=== PATIENT | female | born 1960 | race Caucasian/White ===

== ENCOUNTER 2016-06-10 09:31 | Emergency (ER) | payer OTHER ==
[~2016-06-10] VITALS: Wt 81.6 kg
[~2016-06-10 09:31] MED LIST: ACULAR 3 ML3 M1 OP; AMARYL4 MG PO; AMOXICILLIN500 MG PO; ASPIRIN ADULT L81 M1 PO; AUGMENTIN 875875 MG PO; BIAXIN500 MG PO; CIPRO500 MG PO; CIPROFLOXACIN500 MG PO; CLARITIN10 MG PO; CORTISPORIN SUS10 ML OT; DIFLUCAN150 MG PO; DOXYCYCLINE MO100 MG PO; GENTAMICIN3 MG/ML OP; GLUCOPHAGE1000 MG PO; JENTADUETO 2.51 EAC2 PO; KENALOG0.1% TP; LIPITOR20 MG PO; MEDROL DOSEPAK4 MG PO; Motrin,Rufen800 MG PO; NAPROSYN500 MG PO; Oscal,Oyster S500 MG PO; PAROXETINE40 MG PO; PHENERGAN W/DM120 ML PO; PROZAC40 MG PO; TOBREX OPHTH S2.5 ML OPH; TRAD5TAB1 PO; TRILIPIX45 MG PO; VICODIN 5/500 505 MG PO; VISTARIL50 MG PO; VITAMIN D400 I1 PO; ZITHROMAX Z PA250 MG PO; ZOFRAN ODT4 MG SL
[2016-06-10 09:36] VITALS: BP 156/72
[2016-06-10] MEDS ORDERED: JARDIANCE10 MG PO (09:38)
[2016-06-10] MEDS ORDERED: LISINOPRIL10 M1 PO (09:39)
[2016-06-10] MEDS ORDERED: NEURONTIN300 MG PO (09:39)
[2016-06-10] MEDS ORDERED: FISH OIL500 M1 PO (09:39)
[2016-06-10 10:12] LABS: BASO # 0.1 10*3/uL (0.0-0.1); BASO % 0.7 % (0.0-1.0); EOS # 0.6 10*3/uL (0.0-0.4); EOS % 8.1 % (1.0-4.0); HEMATOCRIT 37.6 % (37.0-47.0); HEMOGLOBIN 12.1 g/dl (12.0-16.0); LYMPH % 28.6 % (27.0-41.0); MEAN CELL VOLUME 89.7 fl (81.0-99.0); MEAN CORPUSCULAR HGB 28.9 pg (27.0-31.0); MEAN CORPUSCULAR HGB CONC 32.2 g/dl (33.0-37.0); MEAN PLATELET VOLUME 10.1 fl (9.6-12.3); MONO # 0.5 10*3/uL (0.1-1.0); MONO % 7.3 % (3.0-9.0); NEUT # 3.7 10*3/uL (2.3-7.9); PLATELET COUNT AUTOMATED 254 10*3/uL (130-400); RED BLOOD COUNT 4.19 10*6/uL (4.10-5.10); RED CELL DISTRI WIDTH 13.7 % (0-14.5); WHITE BLOOD COUNT 6.8 10*3/uL (4.8-10.8)
[2016-06-10 10:28] LABS: ALBUMIN 3.6 gm/dl (3.1-4.5); ALKALINE PHOSPHATASE 106 U/L (45-117); BILIRUBIN, TOTAL 0.5 mg/dl (0.2-1.0); BUN 10 mg/dl (7-24); CARBON DIOXIDE 25 mmol/L (21-32); EST GLOM FILT AFRICAN AMERICAN > 60 ml/min; GLUCOSE 137 mg/dL (65-99); SGOT/AST 14 IU/L (3-35); SGPT/ALT 25 U/L (12-78); TOTAL PROTEIN 7.4 gm/dL (6.4-8.2)
[2016-06-10 10:38] LABS: CHLORIDE 105 mmol/L (98-107); SODIUM 142 mmol/L (136-145)
[2016-06-10] MEDS ORDERED: CEPHALEXIN500 M1 PO (10:49)
== END 2016-06-10 10:52 | disposition home or self-care (01) ==
LOC: ED 09:31
PROVIDERS: Registered Nurse
DX: N61.0 Mastitis without abscess (principal); Z79.82 Long term (current) use of aspirin; Z79.899 Other long term (current) drug therapy

== ENCOUNTER 2016-11-30 13:32 | Emergency (ER) | payer OTHER ==
[~2016-11-30] VITALS: Ht 157.4 cm; Wt 72.6 kg
[~2016-11-30 13:32] MED LIST changes: +CEPHALEXIN500 M1 PO; +FISH OIL500 M1 PO; +JARDIANCE10 MG PO; +LISINOPRIL10 M1 PO; +NEURONTIN300 MG PO
[2016-11-30] MEDS ORDERED: NEURONTIN400 MG PO (13:37)
[2016-11-30] MEDS ORDERED: CYMBALTA60 MG PO (13:39)
[2016-11-30] MEDS ORDERED: LANTUS100 U/ML SQ (13:41)
[2016-11-30 13:52] VITALS: BP 140/71
[2016-11-30 13:56] LABS: BASO % 0.6 % (0.0-1.0); EOS # 0.3 10*3/uL (0.0-0.4); EOS % 4.9 % (1.0-4.0); HEMATOCRIT 35.6 % (37.0-47.0); HEMOGLOBIN 11.5 g/dl (12.0-16.0); LYMPH % 29.7 % (27.0-41.0); MEAN CELL VOLUME 88.1 fl (81.0-99.0); MEAN CORPUSCULAR HGB 28.5 pg (27.0-31.0); MEAN CORPUSCULAR HGB CONC 32.3 g/dl (33.0-37.0); MEAN PLATELET VOLUME 10.2 fl (9.6-12.3); MONO # 0.5 10*3/uL (0.1-1.0); MONO % 7.5 % (3.0-9.0); NEUT # 3.9 10*3/uL (2.3-7.9); NEUT % 57.2 % (47.0-73.0); PLATELET COUNT AUTOMATED 262 10*3/uL (130-400); RED BLOOD COUNT 4.04 10*6/uL (4.10-5.10); RED CELL DISTRI WIDTH 13.8 % (0-14.5); WHITE BLOOD COUNT 6.8 10*3/uL (4.8-10.8)
[2016-11-30 14:13] LABS: ALBUMIN 3.6 gm/dl (3.1-4.5); ALKALINE PHOSPHATASE 104 U/L (45-117); BILIRUBIN, TOTAL 0.5 mg/dl (0.2-1.0); BUN 18 mg/dl (7-24); CARBON DIOXIDE 23 mmol/L (21-32); CHLORIDE 101 mmol/L (98-107); EST GLOM FILT AFRICAN AMERICAN > 60 ml/min; GLUCOSE 348 mg/dL (65-99); MAGNESIUM 1.8 mg/dL (1.5-2.1); POTASSIUM 3.6 mmol/L (3.5-5.1); SGOT/AST 11 IU/L (3-35); SGPT/ALT 23 U/L (12-78); SODIUM 137 mmol/L (136-145); TOTAL PROTEIN 7.3 gm/dL (6.4-8.2)
[2016-11-30 14:17] LABS: TROPONIN I < 0.015 ng/ml (<0.045)
[2016-11-30] MEDS ORDERED: METFORMIN HCL500 MG PO (14:54)
[2016-11-30] MEDS ORDERED: TRAD5TAB1 PO (14:54)
== END 2016-11-30 16:13 | disposition home or self-care (01) ==
LOC: ED 13:32
PROVIDERS: Nurse Practitioner Family
DX: R73.9 Hyperglycemia, unspecified (principal); R03.0 Elevated blood-pressure reading, without diagnosis of hypertension; G43.909 Migraine, unspecified, not intractable, without status migrainosus; Z79.82 Long term (current) use of aspirin; Z79.899 Other long term (current) drug therapy

== ENCOUNTER 2017-02-05 14:18 | Emergency (ER) | payer OTHER ==
[~2017-02-05] VITALS: Wt 81.6 kg
[~2017-02-05 14:18] MED LIST changes: +CYMBALTA60 MG PO; +LANTUS100 U/ML SQ; +METFORMIN HCL500 MG PO; +NEURONTIN400 MG PO
[2017-02-05 14:33] VITALS: BP 112/72
[2017-02-05] MEDS ORDERED: BACTRIM 400-801 EACH PO (14:52)
== END 2017-02-05 15:09 | disposition home or self-care (01) ==
LOC: ED 14:18
DX: L02.11 Cutaneous abscess of neck (principal); Z79.899 Other long term (current) drug therapy; Z79.82 Long term (current) use of aspirin

== ENCOUNTER → 2017-02-07 | Outpatient (CLI) | payer OTHER ==
[~2017-02-07] MED LIST changes: +BACTRIM 400-801 EACH PO
== END | disposition home or self-care (01) ==
LOC: D 09:44
DX: E11.65 Type 2 diabetes mellitus with hyperglycemia (principal)

== ENCOUNTER 2017-05-31 09:27 | Emergency (ER) | payer OTHER ==
[~2017-05-31] VITALS: Ht 165.1 cm; Wt 80.7 kg
[2017-05-31 09:37] VITALS: BP 111/59
[2017-05-31] MEDS ORDERED: ROBITUSSIN DM 105 ML PO (09:52)
[2017-05-31] MEDS ORDERED: FLONASE ALLERG9.9 ML NAS (09:52)
[2017-05-31] MEDS ORDERED: PREDNISONE10 MG PO (09:52)
[2017-05-31] MEDS ORDERED: CLARITIN10 MG PO (09:52)
== END 2017-05-31 11:21 | disposition home or self-care (01) ==
LOC: ED 09:27
DX: J20.9 Acute bronchitis, unspecified (principal); G43.909 Migraine, unspecified, not intractable, without status migrainosus; R73.9 Hyperglycemia, unspecified; F10.10 Alcohol abuse, uncomplicated; Z79.82 Long term (current) use of aspirin; Z79.4 Long term (current) use of insulin; Z79.899 Other long term (current) drug therapy; Z90.49 Acquired absence of other specified parts of digestive tract; Z90.710 Acquired absence of both cervix and uterus

== ENCOUNTER 2017-09-15 10:58 | Emergency (ER) | payer OTHER ==
[~2017-09-15] VITALS: Ht 172.7 cm; Wt 95.3 kg
[~2017-09-15 10:58] MED LIST changes: +FLONASE ALLERG9.9 ML NAS; +PREDNISONE10 MG PO; +ROBITUSSIN DM 105 ML PO
[2017-09-15 11:14] VITALS: BP 103/63
[2017-09-15] MEDS ORDERED: IBU800 MG PO (11:26)
[2017-09-15] MEDS ORDERED: CLARITIN-D 24 H1 TAB PO (11:26)
== END 2017-09-15 12:06 | disposition home or self-care (01) ==
LOC: ED 10:58
DX: M25.532 Pain in left wrist (principal); J30.2 Other seasonal allergic rhinitis; G43.909 Migraine, unspecified, not intractable, without status migrainosus; Z90.710 Acquired absence of both cervix and uterus; Z98.890 Other specified postprocedural states; Z90.49 Acquired absence of other specified parts of digestive tract; Z79.4 Long term (current) use of insulin; Z79.82 Long term (current) use of aspirin; Z79.899 Other long term (current) drug therapy

== ENCOUNTER 2017-12-06 18:50 | Emergency (ER) | payer OTHER ==
[~2017-12-06] VITALS: Ht 165.1 cm; Wt 81.6 kg
[2017-12-06 18:50] VITALS: BP 132/61
[~2017-12-06 18:50] MED LIST changes: +CLARITIN-D 24 H1 TAB PO; +IBU800 MG PO; +LANTUS SOL100 UNIT/1 SC; -LANTUS100 U/ML SQ
[2017-12-06] MEDS ORDERED: CHLORZOXAZONE500 M2 PO (19:42)
== END 2017-12-06 19:51 | disposition home or self-care (01) ==
LOC: ED 18:50
DX: M54.42 Lumbago with sciatica, left side (principal); M54.41 Lumbago with sciatica, right side; R03.0 Elevated blood-pressure reading, without diagnosis of hypertension; Z79.899 Other long term (current) drug therapy; Z79.82 Long term (current) use of aspirin

== ENCOUNTER → 2017-12-26 | Outpatient (CLI) | payer OTHER ==
[~2017-12-26] MED LIST changes: +ADVIL200 MG PO; +CETIRIZINE10 MG PO; +CHLORZOXAZONE500 M2 PO; +LIPITOR40 MG PO; +METHIMAZOLE5 M1 PO; +NOVOLOG FL100 UNIT/1 SQ; +NOVOLOG10 ML SQ; +TOPCARE OMEPRAZ20 MG PO; +VITAMIN D5000 UNIT PO
--- NOTE | ~2017-12-26 | EKG ---
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
== END | disposition home or self-care (01) ==
LOC: MRI 09:38
DX: M54.16 Radiculopathy, lumbar region (principal)

== ENCOUNTER 2018-01-05 13:07 | Inpatient (IN) | payer OTHER ==
[2018-01-05] VITALS (7 sets, daily range): BP systolic 101–113; BP diastolic 58–63
[~2018-01-05] VITALS: Ht 165.1 cm; Wt 80.5 kg
--- NOTE | ~2018-01-05 | ST ---
[place], [place] EXERCISE STRESS TEST REPORT NAME: DYAN GUERRERO UNIT #: [id number] ROOM: 517 DOCTOR: CORRINA CALLOWAY MD BIRTHDATE: [birth year] DOS: 01/07/2018 PROCEDURE: Lexiscan portion of the Lexiscan Cardiolite. Baseline cardiogram, sinus rhythm to sinus tachycardia with nonspecific ST-T changes. A 0.4 mg Lexiscan, duration of 10 seconds. With Lexiscan, no new EKG changes. The patient had no chest discomfort. Blood pressure and heart rate normal. Nuclear images will be reported separately. CORRINA CALLOWAY MD CM:STRESS:EXERCISE STRESS TEST REPORT [id number] CORRINA CALLOWAY MD
--- NOTE | ~2018-01-05 | CON ---
[place], [place] REPORT OF CONSULTATION [id number] UNIT #: [id number] ROOM: 517 DOCTOR: ESTEFANY WILSON MD BIRTHDATE: [birth year] DOS: 01/06/2018 HISTORY OF PRESENT ILLNESS: This is a 57-year-old -[place] woman with a history of longstanding type 2 diabetes mellitus, hyperlipidemia, essential hypertension, migraines, who has had hysterectomy and cholecystectomy. She has never had a heart attack, heart failure, or stroke. No kidney problems or cancer. She has never had COPD. She has never smoked cigarettes. Her father was in his 60s when he was diagnosed with coronary artery disease and I believe mother too. ____. 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 She felt tired and weak. She had no palpitations, but did sweat quite a bit, which was unusual too. She has not had any PND, orthopnea, or swelling of the lower extremities. HOME MEDICATIONS: Include aspirin, atorvastatin, lisinopril, omeprazole, linagliptin/metformin, insulin aspart and glargine, ibuprofen, Jardiance, Cymbalta, and cetirizine. PHYSICAL EXAMINATION: GENERAL: The patient is very pleasant, alert. She is very comfortable. She is not in any distress. There is no anemia, thyromegaly. VITAL SIGNS: Pulse is regular at 80 beats per minute, blood pressure 110/58. NECK: Normal JVP. No carotid bruit is present. HEART: There is no cardiomegaly. Cardiac auscultation reveals normal heart sounds and no murmurs. Good pedal pulses and no edema in the lower extremities. RESPIRATORY: She is not tachypneic. Percussion note is normal. Auscultation reveals good breath sounds bilaterally. DIAGNOSTIC STUDIES: An ECG showed normal sinus rhythm and a normal pattern and troponin I levels were also normal. IMPRESSION: This patient has exertional dyspnea with no underlying lung disease. She also had chest heaviness a couple of times with exertion. This is highly suggestive of underlying coronary artery disease in this patient with many risk factors for atherosclerosis. His stress Cardiolite study has been scheduled, which is most appropriate for this patient. RECOMMENDATIONS: I would perform an exercise stress Cardiolite. An echocardiogram has already been done, which Dr. Pollock will review. I thank you on behalf of Dr. Pollock for this consult. [place], [place] REPORT OF CONSULTATION NAME: [facility]AN [facility]ERRERO [facility]: [id number] UNIT #: [id number] ROOM: 517 DOCTOR: ESTEFANY WILSON MD BIRTHDATE: [birth year] ESTEFANY WILSON MD CM:CONSTR:REPORT OF CONSULTATION 1653 01/07/18 0106 interface CORRINA POLLOCK MD
--- NOTE | ~2018-01-05 | EKG ---
[place], [place] ELECTROCARDIOGRAM REPORT NAME: DYAN GUERRERO UNIT #: [id number] ROOM: 517 DOCTOR: BYRON DRAFT REPORT BIRTHDATE: [birth year] [facility] Test Date: 2018-01-05 Test Time: 19:26:08 Pat Name: DYAN GUERRERO Department: [facility] Room: 517 Gender: F Butcher Scullion: Christoph Zavala : 1960 Requested By: GABRIEL VALDEZ Order Number: [id number] Reading MD: Christoph Revees MD Measurements Intervals [place] Rate: 89 P: 33 DC: 165 QRS: -12 QRSD: 85 T: 12 QT: 367 QTc: 447 Interpretive Statements Sinus rhythm Low voltage, precordial leads Borderline T abnormalities, anterior leads Compared to ECG 01/05/2018 16:34:57 T-wave abnormality now present Electronically Signed On 01-06-2018 7:44:21 PDT by Christoph Reeves MD CM:EKGRPT:ELECTROCARDIOGRAM REPORT [id number] GABRIEL MATTHEWS DRAFT REPORT GABRIEL VALDEZ MD
--- NOTE | ~2018-01-05 | EKG ---
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 Electronically Signed On 01-05-2018 15:55:45 PDT by Christoph Reeves MD CM:EKGRPT:ELECTROCARDIOGRAM REPORT [id number] GABRIEL MATTHEWS DRAFT REPORT GABRIEL VALDEZ MD
[~2018-01-05 13:07] MED LIST changes: -ADVIL200 MG PO; -CETIRIZINE10 MG PO; -LIPITOR40 MG PO; -METHIMAZOLE5 M1 PO; -NOVOLOG FL100 UNIT/1 SQ; -NOVOLOG10 ML SQ; -TOPCARE OMEPRAZ20 MG PO; -VITAMIN D5000 UNIT PO
[2018-01-05 13:38] LABS: BASO % 0.2 % (0.0-1.0); EOS # 0.6 10*3/uL (0.0-0.4); EOS % 6.6 % (1.0-4.0); HEMATOCRIT 34.3 % (37.0-47.0); LYMPH % 23.1 % (27.0-41.0); MEAN CELL VOLUME 84.3 fl (81.0-99.0); MEAN CORPUSCULAR HGB CONC 32.1 g/dl (33.0-37.0); MEAN PLATELET VOLUME 9.7 fl (9.6-12.3); MONO # 0.7 10*3/uL (0.1-1.0); MONO % 8.3 % (3.0-9.0); NEUT # 5.4 10*3/uL (2.3-7.9); NEUT % 61.3 % (47.0-73.0); PLATELET COUNT AUTOMATED 362 10*3/uL (130-400); RED BLOOD COUNT 4.07 10*6/uL (4.10-5.10); RED CELL DISTRI WIDTH 13.6 % (0-14.5); WHITE BLOOD COUNT 8.8 10*3/uL (4.8-10.8)
[2018-01-05 13:55] LABS: ALBUMIN 3.3 gm/dl (3.1-4.5); BUN 22 mg/dl (7-24); CHLORIDE 106 mmol/L (98-107); CREATININE 1.19 mg/dL (0.55-1.02); POTASSIUM 4.5 mmol/L (3.5-5.1); SGOT/AST 11 IU/L (3-35); SGPT/ALT 23 U/L (12-78); SODIUM 139 mmol/L (136-145); TOTAL PROTEIN 7.8 gm/dL (6.4-8.2)
[2018-01-05 13:57] LABS: ALKALINE PHOSPHATASE 155 U/L (45-117)
[2018-01-05 14:08] LABS: ACT PARTIAL THROMBO TIME 22.7 SECONDS (20.8-31.5)
[2018-01-05 14:12] LABS: TROPONIN I < 0.015 ng/ml (<0.045)
[2018-01-05] MEDS ORDERED: TOPCARE OMEPRAZ20 MG PO (16:53)
[2018-01-05] MEDS ORDERED: CETIRIZINE10 MG PO (16:53)
[2018-01-05] MEDS ORDERED: LIPITOR40 MG PO (16:54)
[2018-01-05] MEDS ORDERED: NOVOLOG10 ML SQ (16:55)
[2018-01-05] MEDS ORDERED: VITAMIN D5000 UNIT PO (16:57)
[2018-01-05] MEDS ORDERED: NOVOLOG FL100 UNIT/1 SQ (17:00)
[2018-01-05] MEDS ORDERED: ADVIL200 MG PO (18:02)
[2018-01-06 00:02] VITALS: BP 95/41
[2018-01-06 06:46] LABS: BASO % 0.3 % (0.0-1.0); EOS # 0.5 10*3/uL (0.0-0.4); EOS % 6.4 % (1.0-4.0); HEMATOCRIT 30.9 % (37.0-47.0); HEMOGLOBIN 9.6 g/dl (12.0-16.0); LYMPH # 1.4 10*3/uL (1.3-4.4); LYMPH % 20.1 % (27.0-41.0); MEAN CELL VOLUME 86.6 fl (81.0-99.0); MEAN CORPUSCULAR HGB 26.9 pg (27.0-31.0); MEAN CORPUSCULAR HGB CONC 31.1 g/dl (33.0-37.0); MEAN PLATELET VOLUME 9.3 fl (9.6-12.3); MONO # 0.6 10*3/uL (0.1-1.0); MONO % 9.1 % (3.0-9.0); NEUT # 4.5 10*3/uL (2.3-7.9); NEUT % 63.7 % (47.0-73.0); PLATELET COUNT AUTOMATED 281 10*3/uL (130-400); RED BLOOD COUNT 3.57 10*6/uL (4.10-5.10); RED CELL DISTRI WIDTH 13.8 % (0-14.5); WHITE BLOOD COUNT 7.1 10*3/uL (4.8-10.8)
[2018-01-06 06:54] LABS: INTERNATIONAL NORM RATIO 0.9 (2.0-3.5)
[2018-01-06 07:08] LABS: ALBUMIN 2.7 gm/dl (3.1-4.5); ALKALINE PHOSPHATASE 128 U/L (45-117); BUN 19 mg/dl (7-24); CHLORIDE 108 mmol/L (98-107); CHOLESTEROL 77 mg/dL (<200); CREATININE 1.02 mg/dL (0.55-1.02); HDL CHOLESTEROL 21 mg/dl (40-60); LDL CHOLESTEROL 9 mg/dL (9-159); POTASSIUM 4.8 mmol/L (3.5-5.1); SGOT/AST 9 IU/L (3-35); SGPT/ALT 19 U/L (12-78); SODIUM 141 mmol/L (136-145); TOTAL PROTEIN 6.5 gm/dL (6.4-8.2); TRIGLYCERIDES 236 mg/dl (<150); VLDL CHOLESTEROL 47 mg/dL (6-40)
[2018-01-06 07:53] LABS: THYROID STIM HORMONE (HS) < 0.005 uIU/ml (0.358-4.75)
[2018-01-06 08:00] VITALS: BP 118/66
[2018-01-06 08:40] LABS: VITAMIN D, 25-HYDROXY 40.5 ng/mL (30-100)
[2018-01-06 12:00] VITALS: BP 100/57
[2018-01-06 16:00] VITALS: BP 110/58
[2018-01-06 20:00] VITALS: BP 123/62
[2018-01-07] VITALS: BP 104/47
[2018-01-07 08:00] VITALS: BP 112/56
[2018-01-07] MEDS ORDERED: METHIMAZOLE5 M1 PO (10:08)
== END 2018-01-07 10:42 | disposition home or self-care (01) | DRG 682 ==
LOC: ED 13:07 → EDHOLD 16:01 → 5E 16:01
PROVIDERS: Emergency Medicine; Student in an Organized Health Care Education/Training Program
PROC: 4A02XM4 Measurement of Cardiac Total Activity, External Approach (ICD-10-PCS; principal; 2018-01-07)
PROC: 3E073KZ Introduction of Other Diagnostic Substance into Coronary Artery, Percutaneous Approach (ICD-10-PCS; 2018-01-07)
DX: N17.0 Acute kidney failure with tubular necrosis (principal); E43 Unspecified severe protein-calorie malnutrition; E87.8 Other disorders of electrolyte and fluid balance, not elsewhere classified; I20.8 Other forms of angina pectoris; D64.9 Anemia, unspecified; E78.5 Hyperlipidemia, unspecified; N28.9 Disorder of kidney and ureter, unspecified; I10 Essential (primary) hypertension; R06.09 Other forms of dyspnea; E11.65 Type 2 diabetes mellitus with hyperglycemia; G43.909 Migraine, unspecified, not intractable, without status migrainosus; Z79.4 Long term (current) use of insulin; Z90.710 Acquired absence of both cervix and uterus; Z90.49 Acquired absence of other specified parts of digestive tract; Z82.49 Family history of ischemic heart disease and other diseases of the circulatory system; Z79.82 Long term (current) use of aspirin; Z79.899 Other long term (current) drug therapy; Z68.29 Body mass index [BMI] 29.0-29.9, adult

== ENCOUNTER 2018-05-10 12:46 | Inpatient (IN) | payer MEDICAID ==
[2018-05-10] VITALS (12 sets, daily range): BP systolic 130–158; BP diastolic 63–83
[~2018-05-10] VITALS: Ht 165.1 cm; Wt 79.6 kg
--- NOTE | ~2018-05-10 | EKG ---
[place], [place] ELECTROCARDIOGRAM REPORT NAME: DYAN GUERRERO UNIT #: [id number] ROOM: 528 DOCTOR: BYRON DRAFT REPORT BIRTHDATE: [birth year] [facility] Test Date: 2018-05-10 Test Time: 14:29:18 Pat Name: DYAN GUERRERO Department: Room: 528 Gender: F Insurance Account Representative: [place] : 1960 Requested By: GABRIEL VALDEZ Order Number: [id number] Reading MD: Carrie Chris MD Measurements Intervals [place] Rate: 100 P: 20 MD: 158 QRS: -2 QRSD: 81 T: 17 QT: 395 QTc: 510 Interpretive Statements Sinus tachycardia Low voltage, precordial leads Nonspecific T abnormalities, anterior leads Borderline prolonged QT interval Compared to ECG 01/05/2018 19:26:08 Sinus rhythm no longer present T-wave abnormality still present Electronically Signed On 05-16-2018 8:44:39 PST by Carrie Chris MD CM:EKGRPT:ELECTROCARDIOGRAM REPORT [id number] GABRIEL MATTHEWS DRAFT REPORT GABRIEL VALDEZ MD
--- NOTE | ~2018-05-10 | CON ---
[place], [place] REPORT OF CONSULTATION [id number] UNIT #: [id number] ROOM: 528 DOCTOR: KYM FIGUEROA MD BIRTHDATE: [birth year] DOS: 05/11/2018 NEPHROLOGY CONSULTATION REASON FOR CONSULTATION: Management of dialysis/patient known to you. HISTORY OF PRESENT ILLNESS: The patient is a 57-year-old female with past medical history of end-stage renal disease. Apparently, she has renal cell carcinoma with nephrectomies. Details of this are not clear to me. She is rather new to dialysis. She is being dialyzed at [facility]. She does have a tunneled dialysis catheter in place, also has an AV fistula. The patient is on a Saturday, , Saturday schedule. She had standard labs drawn, which showed her hemoglobin was dropping was noted to be 7. I was called with this on Saturday morning and asked to repeat the labs, subsequently it was down to 6.7. I did recommend an ER admission after dialysis for a unit of blood. I was called by the Emergency Room and they stated the repeat hemoglobin was over 7. The patient did give symptoms of fatigue and a poor appetite. It was decided to transfuse and she was supposed to go home; however, she was admitted. Apparently, there were concerns about a chest x-ray showing pleural effusions. The patient tells me she does feel better after transfusion. She was telling me that they were awaiting my recommendations for discharge, although it was not even aware she was admitted or was going to be admitted. Her hemoglobin did respond to the transfusion. The patient has had no overt signs of bleeding. She does have a history of known dark stools due to iron supplementation. She denied nausea, vomiting, shortness of breath or chest pain. ALLERGIES: Listed to TAPE. MEDICATIONS: Reviewed in the chart. PAST MEDICAL HISTORY: 1. Renal cell carcinoma with apparent history of bilateral nephrectomy, details unclear. 2. End-stage renal disease, on dialysis. 3. Tunneled dialysis catheter placement. 4. AV fistula creation. 5. Anxiety. 6. Coronary artery disease. 7. Diabetes. 8. Gastroesophageal reflux disease. 9. Hyperlipidemia. 10. Hypothyroidism. 11. Vitamin D deficiency. 12. Breast surgery. 13. Cholecystectomy. 14. Hysterectomy. FAMILY HISTORY: Negative for chronic kidney disease, otherwise noncontributory. SOCIAL HISTORY: No tobacco, alcohol or illicit drugs. [place], [place] REPORT OF CONSULTATION NAME: DYAN GUERRERO UNIT #: [id number] ROOM: 528 DOCTOR: KYM FIGUEROA MD BIRTHDATE: [birth year] REVIEW OF SYSTEMS: As per HPI, otherwise, a 10-point review of systems was reviewed and was negative. PHYSICAL EXAMINATION: VITAL SIGNS: Temperature 98.2, pulse 93, respiratory rate 20, blood pressure 147/78. GENERAL: She is awake, alert, comfortable, in no acute distress. HEENT: Shows no JVD. Sclerae are anicteric. Mucous membranes are moist. Pharynx is clear. NECK: Supple. Trachea is midline. There is no neck lymphadenopathy or thyromegaly. LUNGS: Have diminished breath sounds at the bases, otherwise clear to auscultation. No crackles, wheezing or rales. There is no tactile fremitus. She is not using accessory muscles of respiration. HEART: S1, S2. No rub, thrill or gallop. ABDOMEN: Soft, nontender. There is no organomegaly or rigidity, rebound or guarding. There is no CVA tenderness. EXTREMITIES: Had no edema. There is no lower extremity lymphadenopathy. Distal pulses are 2+. SKIN: Showed overt rash. There was no petechia or purpura. Skin temperature is warm. NEUROLOGIC: She is awake, alert and following commands. Cranial nerves were intact. LABORATORY DATA: Hemoglobin 8.1, white count of 7.7, platelets of 147, BUN 19, creatinine 5.6, glucose 120. Sodium 135, potassium 4.1, CO2 of 27, calcium 8.3, phosphorus 2.8, magnesium 1.9. IMPRESSION: 1. End-stage renal disease, on hemodialysis Saturday, and Saturday, currently through a tunneled dialysis catheter. 2. Anemia with question of acute blood loss versus anemia of chronic disease. 3. Pleural effusions, likely due to chronic volume overload. 4. Renal cell carcinoma. 5. Anxiety. 6. Hypertension. PLAN: 1. Continue dialysis as per her normal schedule. 2. Continue home medications. 3. Ongoing supportive care. 4. The patient does have pleural effusions that will likely be needed to be re-addressed following ultrafiltration over the next few weeks. She does not require admission in the hospital and can be discharged from a renal standpoint. Thank you for this consultation. We will follow. [place], [place] REPORT OF CONSULTATION NAME: DYAN GUERRERO UNIT #: [id number] ROOM: 528 DOCTOR: KYM FIGUEROA MD BIRTHDATE: [birth year] KYM FIGUEROA MD CM:CONSTR:REPORT OF CONSULTATION 02 05/11/182124 interface
[~2018-05-10 12:46] MED LIST changes: +ADVIL200 MG PO; +CETIRIZINE10 MG PO; +LIPITOR40 MG PO; +METHIMAZOLE5 M1 PO; +NOVOLOG FL100 UNIT/1 SQ; +NOVOLOG10 ML SQ; +TOPCARE OMEPRAZ20 MG PO; +VITAMIN D5000 UNIT PO
[2018-05-10 13:27] LABS: BASO % 0.5 % (0.0-1.0); EOS # 0.6 10*3/uL (0.0-0.4); EOS % 7.6 % (1.0-4.0); HEMATOCRIT 21.1 % (37.0-47.0); HEMOGLOBIN 7.1 g/dl (12.0-16.0); LYMPH # 1.3 10*3/uL (1.3-4.4); LYMPH % 17.3 % (27.0-41.0); MEAN CELL VOLUME 89.4 fl (81.0-99.0); MEAN CORPUSCULAR HGB 30.1 pg (27.0-31.0); MEAN CORPUSCULAR HGB CONC 33.6 g/dl (33.0-37.0); MEAN PLATELET VOLUME 9.2 fl (9.6-12.3); MONO # 0.5 10*3/uL (0.1-1.0); MONO % 6.1 % (3.0-9.0); NEUT # 5.2 10*3/uL (2.3-7.9); PLATELET COUNT AUTOMATED 106 10*3/uL (130-400); RED BLOOD COUNT 2.36 10*6/uL (4.10-5.10); RED CELL DISTRI WIDTH 13.2 % (0-14.5); WHITE BLOOD COUNT 7.7 10*3/uL (4.8-10.8)
[2018-05-10 13:37] LABS: ACT PARTIAL THROMBO TIME 30.5 SECONDS (20.8-31.5)
[2018-05-10 13:43] LABS: ALBUMIN 2.4 gm/dl (3.1-4.5); CREATININE 3.96 mg/dL (0.55-1.02); POTASSIUM 3.7 mmol/L (3.5-5.1); TOTAL PROTEIN 6.6 gm/dL (6.4-8.2)
[2018-05-10] MEDS ORDERED: TAPAZOLE5 MG PO (16:02)
[2018-05-10] MEDS ORDERED: NOVOLOG100 UNIT/1 SQ (16:09)
[2018-05-10] MEDS ORDERED: SENOKOT-S TABL1 EACH PO (16:11)
[2018-05-10] MEDS ORDERED: TRAD5TAB1 PO (16:11)
[2018-05-10] MEDS ORDERED: DIAZEPAM2 MG PO (16:13)
[2018-05-10] MEDS ORDERED: AURYXIA210 MG PO (16:14)
[2018-05-10] MEDS ORDERED: HYDROXYZINE PAM50 MG PO (17:09)
[2018-05-10 22:20] LABS: BASO % 0.5 % (0.0-1.0); EOS # 0.8 10*3/uL (0.0-0.4); EOS % 10.4 % (1.0-4.0); HEMATOCRIT 22.5 % (37.0-47.0); HEMOGLOBIN 7.5 g/dl (12.0-16.0); LYMPH # 1.7 10*3/uL (1.3-4.4); LYMPH % 22.5 % (27.0-41.0); MEAN CELL VOLUME 89.6 fl (81.0-99.0); MEAN CORPUSCULAR HGB 29.9 pg (27.0-31.0); MEAN CORPUSCULAR HGB CONC 33.3 g/dl (33.0-37.0); MEAN PLATELET VOLUME 9.9 fl (9.6-12.3); MONO # 0.6 10*3/uL (0.1-1.0); MONO % 8.4 % (3.0-9.0); NEUT # 4.2 10*3/uL (2.3-7.9); NEUT % 57.7 % (47.0-73.0); PLATELET COUNT AUTOMATED 126 10*3/uL (130-400); RED BLOOD COUNT 2.51 10*6/uL (4.10-5.10); RED CELL DISTRI WIDTH 13.7 % (0-14.5); WHITE BLOOD COUNT 7.3 10*3/uL (4.8-10.8)
[2018-05-11] VITALS: BP 131/60
[2018-05-11 06:38] LABS: BASO % 0.5 % (0.0-1.0); EOS # 0.8 10*3/uL (0.0-0.4); EOS % 9.8 % (1.0-4.0); HEMATOCRIT 24.5 % (37.0-47.0); HEMOGLOBIN 8.1 g/dl (12.0-16.0); LYMPH # 1.8 10*3/uL (1.3-4.4); LYMPH % 22.6 % (27.0-41.0); MEAN CELL VOLUME 89.7 fl (81.0-99.0); MEAN CORPUSCULAR HGB 29.7 pg (27.0-31.0); MEAN CORPUSCULAR HGB CONC 33.1 g/dl (33.0-37.0); MEAN PLATELET VOLUME 9.9 fl (9.6-12.3); MONO # 0.7 10*3/uL (0.1-1.0); MONO % 8.5 % (3.0-9.0); NEUT # 4.5 10*3/uL (2.3-7.9); NEUT % 58.3 % (47.0-73.0); PLATELET COUNT AUTOMATED 147 10*3/uL (130-400); RED BLOOD COUNT 2.73 10*6/uL (4.10-5.10); WHITE BLOOD COUNT 7.7 10*3/uL (4.8-10.8)
[2018-05-11 07:22] LABS: POTASSIUM 4.1 mmol/L (3.5-5.1)
[2018-05-11 07:40] LABS: CREATININE 5.6 mg/dL (0.55-1.02); FREE T4 0.72 ng/dl (0.76-1.46); PHOSPHOROUS 2.8 mg/dL (2.5-4.9); THYROID STIM HORMONE (HS) 58.7 uIU/ml (0.358-4.75)
[2018-05-11 08:00] VITALS: BP 162/60
[2018-05-11 09:32] LABS: VITAMIN D, 25-HYDROXY 45.4 ng/mL (30-100)
[2018-05-11 12:00] VITALS: BP 165/81
[2018-05-11 16:00] VITALS: BP 147/78
[2018-05-11 20:00] VITALS: BP 150/78
== END 2018-05-11 19:35 | disposition home or self-care (01) | DRG 682 ==
LOC: ED 12:46 → EDHOLD 14:17 → 5E 14:33
PROVIDERS: Emergency Medicine; Internal Medicine
PROC: 30233N1 Transfusion of Nonautologous Red Blood Cells into Peripheral Vein, Percutaneous Approach (ICD-10-PCS; principal; 2018-05-10)
DX: I12.0 Hypertensive chronic kidney disease with stage 5 chronic kidney disease or end stage renal disease (principal); N18.6 End stage renal disease; E43 Unspecified severe protein-calorie malnutrition; J90 Pleural effusion, not elsewhere classified; E87.1 Hypo-osmolality and hyponatremia; C64.9 Malignant neoplasm of unspecified kidney, except renal pelvis; D63.1 Anemia in chronic kidney disease; R00.0 Tachycardia, unspecified; D69.6 Thrombocytopenia, unspecified; E87.8 Other disorders of electrolyte and fluid balance, not elsewhere classified; E78.5 Hyperlipidemia, unspecified; I25.10 Atherosclerotic heart disease of native coronary artery without angina pectoris; E03.9 Hypothyroidism, unspecified; K21.9 Gastro-esophageal reflux disease without esophagitis; R34 Anuria and oliguria; K59.00 Constipation, unspecified; E66.3 Overweight; E11.22 Type 2 diabetes mellitus with diabetic chronic kidney disease; E55.9 Vitamin D deficiency, unspecified; R42 Dizziness and giddiness; G43.909 Migraine, unspecified, not intractable, without status migrainosus; F41.9 Anxiety disorder, unspecified; E11.65 Type 2 diabetes mellitus with hyperglycemia; Z79.4 Long term (current) use of insulin; Z91.09 Other allergy status, other than to drugs and biological substances; Z99.2 Dependence on renal dialysis; Z90.5 Acquired absence of kidney; Z91.048 Other nonmedicinal substance allergy status; Z90.710 Acquired absence of both cervix and uterus; Z90.49 Acquired absence of other specified parts of digestive tract; Z82.49 Family history of ischemic heart disease and other diseases of the circulatory system; Z83.3 Family history of diabetes mellitus; Z79.82 Long term (current) use of aspirin; Z79.899 Other long term (current) drug therapy

== ENCOUNTER → 2018-07-11 | Outpatient (CLI) | payer MEDICAID ==
[~2018-07-11] MED LIST changes: +AURYXIA210 MG PO; +DIAZEPAM2 MG PO; +HYDROXYZINE PAM50 MG PO; +NOVOLOG100 UNIT/1 SQ; +SENOKOT-S TABL1 EACH PO; +TAPAZOLE5 MG PO
== END | disposition home or self-care (01) ==
LOC: LAB 11:48
DX: R19.7 Diarrhea, unspecified (principal)

== ENCOUNTER 2018-09-20 14:41 | Emergency (ER) | payer MEDICARE ==
[~2018-09-20] VITALS: Wt 75.7 kg
--- NOTE | ~2018-09-20 | EKG ---
[place], [place] ELECTROCARDIOGRAM REPORT NAME: DYAN GUERRERO UNIT #: [id number] ROOM: DOCTOR: EPIPHANY DRAFT REPORT BIRTHDATE: [birth year] [facility] Test Date: 2018-09-20 Test Time: 14:47:18 Pat Name: DYAN GUERRERO Department: Room: Gender: F [employer] Server: : 1960 Requested By: GABRIEL VALDEZ Order Number: [id number] Reading MD: Jonathan Pollock MD Measurements Intervals [place] Rate: 88 P: 44 CT: 148 QRS: 20 QRSD: 91 T: 30 QT: 442 QTc: 535 Interpretive Statements Sinus rhythm Probable left atrial enlargement Probable anterior infarct, age indeterminate Prolonged QT interval Compared to ECG 05/10/2018 14:29:18 Myocardial infarct finding now present Sinus tachycardia no longer present T-wave abnormality no longer present Electronically Signed On 09-22-2018 7:56:53 PDT by Jonathan Pollock MD CM:EKGRPT:ELECTROCARDIOGRAM REPORT [id number] GABRIEL VALDEZ MD EPIPHLEYDA DRAFT REPORT GABRIEL VALDEZ MD
[2018-09-20 15:19] LABS: BASO # 0.1 10*3/uL (0.0-0.1); BASO % 0.8 % (0.0-1.0); EOS # 0.8 10*3/uL (0.0-0.4); EOS % 11.1 % (1.0-4.0); HEMATOCRIT 26.2 % (37.0-47.0); HEMOGLOBIN 8.2 g/dl (12.0-16.0); LYMPH # 2.4 10*3/uL (1.3-4.4); LYMPH % 32.4 % (27.0-41.0); MEAN CORPUSCULAR HGB 28.2 pg (27.0-31.0); MEAN CORPUSCULAR HGB CONC 31.3 g/dl (33.0-37.0); MEAN PLATELET VOLUME 9.2 fl (9.6-12.3); MONO # 0.4 10*3/uL (0.1-1.0); MONO % 5.9 % (3.0-9.0); NEUT # 3.6 10*3/uL (2.3-7.9); NEUT % 49.4 % (47.0-73.0); PLATELET COUNT AUTOMATED 205 10*3/uL (130-400); RED BLOOD COUNT 2.91 10*6/uL (4.10-5.10); RED CELL DISTRI WIDTH 14.2 % (0-14.5); WHITE BLOOD COUNT 7.3 10*3/uL (4.8-10.8)
[2018-09-20 15:27] LABS: INTERNATIONAL NORM RATIO 1.1 (2.0-3.5)
[2018-09-20 15:37] LABS: ALBUMIN 1.8 gm/dl (3.1-4.5); BUN 4 mg/dl (7-24); CHLORIDE 98 mmol/L (98-107); CREATININE 2.57 mg/dL (0.55-1.02); POTASSIUM 3.7 mmol/L (3.5-5.1); SGOT/AST 23 IU/L (3-35); SGPT/ALT 7 U/L (12-78); SODIUM 136 mmol/L (136-145)
[2018-09-20 15:43] LABS: ALKALINE PHOSPHATASE 179 U/L (45-117)
[2018-09-20 15:44] LABS: TROPONIN I < 0.015 ng/ml (<0.045)
[2018-09-20 16:31] VITALS: BP 132/64
== END 2018-09-20 17:03 | disposition short-term general hospital (02) ==
LOC: ED 14:41
PROVIDERS: Emergency Medicine
DX: J90 Pleural effusion, not elsewhere classified (principal); R20.0 Anesthesia of skin; R20.2 Paresthesia of skin; I25.10 Atherosclerotic heart disease of native coronary artery without angina pectoris; K21.9 Gastro-esophageal reflux disease without esophagitis; E78.5 Hyperlipidemia, unspecified; E03.9 Hypothyroidism, unspecified; E11.22 Type 2 diabetes mellitus with diabetic chronic kidney disease; N18.6 End stage renal disease; Z99.2 Dependence on renal dialysis; Z91.048 Other nonmedicinal substance allergy status; Z79.899 Other long term (current) drug therapy; Z79.4 Long term (current) use of insulin; Z79.84 Long term (current) use of oral hypoglycemic drugs; Z79.82 Long term (current) use of aspirin

== ENCOUNTER → 2020-03-17 | Outpatient (CLI) | payer MEDICARE | END | disposition home or self-care (01) | LOC: CARD 00:36 | PROVIDERS: ATTEND Internal Medicine Cardiovascular Disease | DX: R06.00 Dyspnea, unspecified (principal) ==